=== PATIENT | female | born 1950 | race Caucasian/White ===

== ENCOUNTER 2017-10-09 01:11 | Observation (INO) ==
--- NOTE | 2017-10-09 09:55 | Internal Med History&Physical ---
Date of Encounter: 10/09/17 Time of Encounter: 09:52 Assessment and Plan (1) CAD (coronary artery disease) Current visit: Yes Status: Acute Patient with history of 3 stents now with recurrent chest pain troponin so far is negative is scheduled for nuclear stress test. Qualifiers: Coronary Disease-Associated Artery/Lesion type: [place] artery [place] vs. transplanted heart: [place] heart Associated angina: with stable angina Qualified Code(s): I25.118 - Atherosclerotic heart disease of [place] coronary artery with other forms of angina pectoris (2) HTN (hypertension) Current visit: Yes Status: Chronic Chronic and well controlled Qualifiers: Hypertension type: essential hypertension Qualified Code(s): I10 - Essential (primary) hypertension (3) Diabetes 1.5, managed as type 2 Current visit: Yes Status: Chronic Chronic and resume home medication and place on sliding scale (4) Obesity Current visit: Yes Status: Chronic Qualifiers: Obesity type: due to excess calories Obesity classification: unspecified obesity classification Serious obesity comorbidity presence: unspecified whether serious comorbidity present Qualified Code(s): E66.09 - Other obesity due to excess calories (5) COPD (chronic obstructive pulmonary disease) Current visit: Yes Status: Chronic Chronic no active wheezing Qualifiers: COPD type: emphysema Emphysema type: unspecified Qualified Code(s): J43.9 - Emphysema, unspecified (6) Hyperlipidemia Current visit: Yes Status: Chronic Chronic check lipid profile in a.m. Qualifiers: Hyperlipidemia type: pure hypercholesterolemia Qualified Code(s): E78.00 - Pure hypercholesterolemia, unspecified; E78.0 - Pure hypercholesterolemia (7) Smoking Current visit: Yes Status: Chronic (8) Chest pain Current visit: No Status: Acute Chest pain patient with the prior stents need further cardiac evaluation Qualifiers: Chest pain type: precordial pain Qualified Code(s): R07.2 - Precordial pain Internal Medicine - H&P: HPI Chief complaint: chest pain Admitted From: Emergency Dept Plans for Post Hospital Care: Home History of present illness: Ms. Lott is a 67 year old female Patient transfer from [facility] due to chest pain. Patient with history of CAD had 3 stents in the past plcaed at hospital in [place] also had history of COPD, diabetes, obesity, high cholesterol, smoking history patient presented to [facility] with about 4 hours of chest pain describes as dull tightness going up to her neck and jaw given total of 3 sublingual nitroglycerin and the chest pain subsided patient says chest pain similar to prior cardiac event of where she had angioplasty done therefore she was transferred here. chest pain still comes back from time to time troponin so far is negative. Patient will have further cardiac evaluation. Past Med Surg Social Fam HX - Past Medical History Medical history: COPD, diabetes, hyperlipidemia, hypertension, myocardial infarction Psychiatric history: anxiety, depression - Social History Smoking Status: Current every day smoker Smokeless Tobacco Status: No Alcohol use: none Drug use: none - Family History Mother History Unknown: Yes Internal Medicine - H&P: Meds Unable To Obtain [Unable to Obtain] 10/08/17 [History] 3 Allergy/AdvReac Type Severity Reaction Status Date / Time acetaminophen [From Vicodin] Allergy Hives Verified 10/08/17 22:55 Diclofenac [From Voltaren] Allergy Hives Verified 10/08/17 22:55 hydrocodone [From Vicodin] Allergy Hives Verified 10/08/17 22:55 tramadol [From Ultram] Allergy Hives Verified 10/08/17 22:55 All Systems PM: A 10-system review of systems was performed and is negative for pertinent findings except as documented above in the HPI. - Constitutional Constitutional: as per HPI - EENT Eyes: no change in vision, no discharge, no pain, no photophobia Ears: no ear discharge, no ear pain, no tinnitus Nose, mouth and throat: no dysphagia, no nasal discharge, no neck pain, no sore throat - Cardiovascular Cardiovascular ROS IM: chest pain, dyspnea on exertion - Respiratory Respiratory: dyspnea, dyspnea on exertion - Gastrointestinal Gastrointestinal: no abdominal pain, no diarrhea, no hematemesis, no hematochezia, no melena, no nausea, no vomiting - Genitourinary Genitourinary: no change in urinary stream, no dysuria, no flank pain, no hematuria - Musculoskeletal Musculoskeletal ROS IM: no numbness, no tingling - Constitutional Vitals: Temp Pulse Resp BP Pulse Ox 97.9 F 66 18 131/83 96 10/09/17 08:31 10/09/17 08:31 10/09/17 08:31 10/09/17 08:31 10/09/17 08:31 General appearance: Present: morbidly obese - Eye Eye exam: Present: PERRL, conjuntiva pink, sclera anicteric Pupils: Present: PERRL - Neck Neck exam general surgery: Present: supple, trachea midline. Absent: lymphadenopathy - Cardiovascular Cardiovascular exam: Present: RRR, +S1, +S2. Absent: diastolic murmur, gallop, rubs, systolic murmur - GI/Abdominal GI/Abdominal exam: Present: normal bowel sounds, soft, no peritoneal signs. Absent: distended, tenderness - Extremities Exam Extremities exam: Present: warm, radial pulses palpable and symmetrical. Absent : calf tenderness, cyanotic, pedal edema
[2017-10-09] MEDS ORDERED: Naloxone 0.4 MG/ML INJ IVP PRN (10:00)
[2017-10-09] MEDS ORDERED: Acetaminophen 325 MG TABLET PO PRN (10:00)
[2017-10-09] MEDS ORDERED: traMADol 50 MG TABLET PO PRN ×2 (10:00→10:10)
[2017-10-09] MEDS: *HR* OxyCODONE/APAP 7.5/325 TABLET PO PRN (14:01)
[2017-10-09] MEDS: Isosorbide MONOnitrate (24 HR) 60 MG TAB.ER.24H PO SCH (16:38)
[2017-10-09] MEDS: BuPROPion XL (24 HR) 150 MG TABLET PO SCH (16:39)
[2017-10-09] MEDS: Venlafaxine XR (24 HR) 150 MG CAP.ER.24H PO SCH (16:39)
[2017-10-09] MEDS: Cholecalciferol (D-3) 1,000 UNIT TABLET PO SCH ×2 (16:39→21:32)
[2017-10-09] MEDS: Pregabalin 75 MG CAPSULE PO SCH ×2 (16:44→21:32)
[2017-10-09] MEDS ORDERED: Pregabalin 75 MG CAPSULE PO SCH ×2 (21:00)
[2017-10-09] MEDS ORDERED: Patient Taking Own Medication 1 EACH PO SCH (21:00)
[2017-10-09] MEDS ORDERED: Cholecalciferol (D-3) 1,000 UNIT TABLET PO SCH (21:00)
[2017-10-09] MEDS: ETODOLAC 400 MG PO SCH (21:33)
[2017-10-10 02:09] LABS: Chol/HDL Ratio 4.6 (0-4.9); Magnesium 1.9 mg/dL (1.6-2.6)
[2017-10-10] MEDS: *HR* OxyCODONE/APAP 7.5/325 TABLET PO PRN (02:09)
[2017-10-10] MEDS ORDERED: Regadenoson 0.4 MG/5 ML SYRINGE IVP ONE (06:14)
[2017-10-10] MEDS: Isosorbide MONOnitrate (24 HR) 60 MG TAB.ER.24H PO SCH (07:30)
[2017-10-10] MEDS: ETODOLAC 400 MG PO SCH ×2 (07:31→21:56)
[2017-10-10] MEDS: Cholecalciferol (D-3) 1,000 UNIT TABLET PO SCH ×2 (07:32→21:57)
[2017-10-10] MEDS: Venlafaxine XR (24 HR) 150 MG CAP.ER.24H PO SCH (07:37)
[2017-10-10] MEDS: BuPROPion XL (24 HR) 150 MG TABLET PO SCH (07:37)
[2017-10-10] MEDS: Pregabalin 75 MG CAPSULE PO SCH ×2 (07:37→21:57)
[2017-10-10] MEDS ORDERED: BuPROPion XL (24 HR) 150 MG TABLET PO SCH (09:00)
[2017-10-10] MEDS ORDERED: Venlafaxine XR (24 HR) 150 MG CAP.ER.24H PO SCH (09:00)
[2017-10-10] MEDS ORDERED: Isosorbide MONOnitrate (24 HR) 60 MG TAB.ER.24H PO SCH (09:00)
--- NOTE | 2017-10-10 13:52 | Internal Med Progress Note ---
Date of Encounter: 10/10/17 Time of Encounter: 13:51 - Assessment and plan (1) CAD (coronary artery disease) Current Visit: Yes Status: Acute Assessment and plan: hx PCI in 2009 with drug eluting stents to RCA and ramus. Now with chest pain that started today of presentation. [place] states chest pain was similar to when she had stents placed. TTE with EF 65%, mild diastolic dysfunction, no wall motion abnormalities. Stress test negative for infarct/ischemia. Patient had chest pain on warning of 10/10 prior to stress test. Stress test options with her at length regarding medical management, outpatient follow-up versus inpatient cardiology consultation. Patient would like to maximize medical therapy, stay overnight for continued monitoring and discharge home tomorrow with outpatient follow-up if she remains chest pain-free. Continue home ASA, BB , statin. Increase isosorbide. Plan to discharge home 10/11 if no chest pain recurrence. Will need to consult cardiology if chest pain recurs. Qualifiers: Coronary Disease-Associated Artery/Lesion type: [place] artery [place] vs. transplanted heart: [place] heart Associated angina: with stable angina Qualified Code(s): I25.118 - Atherosclerotic heart disease of [place] coronary artery with other forms of angina pectoris (2) COPD (chronic obstructive pulmonary disease) Current Visit: Yes Status: Chronic Assessment and plan: per hx. Current smoker. No evidence of exacerbation. Cont PRN breathing treatments. Qualifiers: COPD type: emphysema Emphysema type: unspecified Qualified Code(s): J43.9 - Emphysema, unspecified (3) Diabetes 1.5, managed as type 2 Current Visit: Yes Status: Chronic Assessment and plan: per hx. blood sugars controlled. Holding home metformin. SSI. Monitor blood sugars and titrate PRN (4) HTN (hypertension) Current Visit: Yes Status: Chronic Assessment and plan: per hx. Bp controlled. Cont home BP medications Qualifiers: Hypertension type: essential hypertension Qualified Code(s): I10 - Essential (primary) hypertension (5) DVT prophylaxis Current Visit: Yes Status: Acute Assessment and plan: heparin - Subjective Interval history: Seen and examined at [facility]; patient is due to me. Information obtained from chart review patient report. Says she feels better, no chest pain or shortness breath at this time. She does report episode of chest pain earlier this morning. Says chest pain occurred yesterday it was similar to previous MS. Discussed with her at length her options regarding discharge her home with outpatient follow-up, increasing long-acting nitrate or inpatient cardiology consultation. Patient would like to increase long-acting nitrate and stay overnight for continued monitoring. - Constitutional Vitals: Temp Pulse Resp BP Pulse Ox 97.7 F 81 18 113/75 95 10/10/17 11:25 10/10/17 11:25 10/10/17 11:25 10/10/17 11:25 10/10/17 11:25 General appearance: Present: A&O X 3, morbidly obese, no acute distress - Head Head exam: Present: atraumatic, normocephalic - Eye Eye exam: Present: PERRL, conjuntiva pink, sclera anicteric Pupils: Present: PERRL - Neck Neck exam general surgery: Present: supple, trachea midline. Absent: lymphadenopathy - Respiratory Respiratory exam: Present: CTAB. Absent: accessory muscle use, rales, rhonchi, wheezes - Cardiovascular Cardiovascular exam: Present: RRR, +S1, +S2. Absent: diastolic murmur, gallop, rubs, systolic murmur - GI/Abdominal GI/Abdominal exam: Present: normal bowel sounds, soft, no peritoneal signs. Absent: distended, tenderness - Extremities Exam Extremities exam: Present: warm, radial pulses palpable and symmetrical. Absent : calf tenderness, cyanotic, pedal edema - Neurological Exam Neurological exam: Present: CN II-XII intact, oriented X3, no focal deficits. Absent: pronater drift, facial droop, speech deficit - Skin Skin exam: Present: dry, intact Internal Medicine: Result - Labs Labs: Cardiac Enzymes 10/09/17 10/09/17 Range/Units 16:48 22:17 Troponin I < 0.03 < 0.03 (< 0.04) ng/mL - Impressions Impressions Echocardiogram 10/09/17 10:03 Impressions: LVEF 65%. Normal LV chamber size, wall thickness and function. Mild left ventricular diastolic dysfunction. Normal right ventricular structure and function. Unable to estimate RVSP due to lack of TR jet. No significant valvular dysfunction. Left Ventricular Wall Motion: Rest Echo Findings All wall segments showed normal motion. Findings: Study Quality * Technically adequate exam. ECG Findings * Normal sinus rhythm. Left Ventricle * LVEF 65%. * Normal LV chamber size, wall thickness and function. * Mild left ventricular diastolic dysfunction. Right Ventricle * Normal right ventricular structure and function. Left Atrium * Normal left atrial size. Right Atrium * Normal right atrial size. Interatrial Septum * Interatrial septum not well evaluated. Aortic Valve * Aortic valve not well visualized. * No aortic regurgitation. * No aortic stenosis. Mitral Valve * Normal mitral valve structure and function. * No mitral regurgitation. * No mitral stenosis. Tricuspid Valve * Normal tricuspid valve structure and function. * No tricuspid regurgitation. * Unable to estimate RVSP due to lack of TR jet. Aorta * Normally sized aortic root. Pericardium * The pericardium appears normal. IVC * Normal IVC dimensions and inspiratory collapse. Pulmonary Artery * Normal visualized portions of the main pulmonary artery. Consult Discharge Plan - Plan Referrals: Dakota Perez, SHAR [Primary Care Provider] -
[2017-10-10] MEDS: Isosorbide MONOnitrate (24 HR) 30 MG TAB.ER.24H PO SCH (14:14)
[2017-10-10] MEDS ORDERED: D5% in Water 1,000 ML IVC PRN (14:15)
[2017-10-10] MEDS ORDERED: Dextrose Gel 15 GM/37.5 ML TUBE PO PRN ×2 (14:15)
[2017-10-10] MEDS ORDERED: *HR* Dextrose 50 % in Water (Syg) 50 ML SYRINGE IVP PRN (14:15)
[2017-10-10 15:24] LABS: Hemoglobin A1C 5.9 %
[2017-10-10] MEDS: Insulin LISPRO 300 UNITS/3 ML VIAL SQ SCH (16:28)
[2017-10-10] MEDS: Aspirin 81 MG TAB.CHEW PO SCH (16:30)
[2017-10-10] MEDS ORDERED: Insulin LISPRO 300 UNITS/3 ML VIAL SQ SCH (21:00)
[2017-10-10] MEDS: *HR* Heparin 5,000 UNIT/ML VIAL SQ SCH (21:58)
[2017-10-11 04:08] LABS: Hematocrit 43.6 % (35.3-44.9); Hemoglobin 14.1 g/dL (11.5-15.4); Mean Corpuscular HGB Conc 32.3 g/dL (31.6-35.5); Mean Corpuscular Hemoglobin 31.2 pg (28.0-33.3); Mean Corpuscular Volume 96.5 fL (83.0-100.0); Mean Platelet Volume 9.8 fL (9.4-12.4); Platelet Count 273 K/mcL (140-400); Red Blood Count 4.52 M/mcL (3.82-4.97); Red Cell Distribution Width 14.1 % (11.5-14.5)
[2017-10-11 04:30] LABS: BUN/Creatinine Ratio 26 (6-26); Blood Urea Nitrogen 22 mg/dL (8-23); Calcium 9.6 mg/dL (8.6-10.3); Carbon Dioxide 25 mEq/L (23-29); Chloride 107 mEq/L (98-107); Glucose 89 mg/dL (70-105); Osmolality,Calculated 293 (280-300); Potassium 4.5 mEq/L (3.5-5.1); Sodium 140 mEq/L (136-145); eGFR For Non-African Americans > 60 (> 60)
[2017-10-11] MEDS: *HR* Heparin 5,000 UNIT/ML VIAL SQ SCH (06:25)
[2017-10-11 08:08] VITALS: BP 138/83
[2017-10-11] MEDS: Cholecalciferol (D-3) 1,000 UNIT TABLET PO SCH (08:08)
[2017-10-11] MEDS: Venlafaxine XR (24 HR) 150 MG CAP.ER.24H PO SCH (08:08)
[2017-10-11] MEDS: Pregabalin 75 MG CAPSULE PO SCH (08:08)
[2017-10-11] MEDS: Aspirin 81 MG TAB.CHEW PO SCH (08:08)
[2017-10-11] MEDS: Isosorbide MONOnitrate (24 HR) 30 MG TAB.ER.24H PO SCH (08:09)
[2017-10-11] MEDS: ETODOLAC 400 MG PO SCH (08:09)
[2017-10-11] MEDS: BuPROPion XL (24 HR) 150 MG TABLET PO SCH (08:09)
[2017-10-11] MEDS: Insulin LISPRO 300 UNITS/3 ML VIAL SQ SCH (08:14)
--- NOTE | 2017-10-11 09:38 | Internal Med Progress Note ---
Date of Encounter: 10/11/17 Time of Encounter: 08:55 - Assessment and plan (1) CAD (coronary artery disease) Current Visit: Yes Status: Acute Assessment and plan: Patient denies chest pain. She states that she is feeling better and ready to go home. She will be sent home with a prescription or increased amount of Imdur. She will continue her home dose of aspirin, beta myron, and her statin. Patient will follow up with primary care and cardiology. Patient arrived discussed smoking cessation, she states that she already has a box of patches at home has decided that she is ready to stop smoking. Echo results below. Cardiac stress test was negative for infarct or ischemia. Echocardiogram 10/09/17 10:03 Impressions: LVEF 65%. Normal LV chamber size, wall thickness and function. Mild left ventricular diastolic dysfunction. Normal right ventricular structure and function. Unable to estimate RVSP due to lack of TR jet. No significant valvular dysfunction. Left Ventricular Wall Motion: Rest Echo Findings All wall segments showed normal motion. Findings: Study Quality * Technically adequate exam. ECG Findings * Normal sinus rhythm. Left Ventricle * LVEF 65%. * Normal LV chamber size, wall thickness and function. * Mild left ventricular diastolic dysfunction. Right Ventricle * Normal right ventricular structure and function. Left Atrium * Normal left atrial size. Right Atrium * Normal right atrial size. Interatrial Septum * Interatrial septum not well evaluated. Aortic Valve * Aortic valve not well visualized. * No aortic regurgitation. * No aortic stenosis. Mitral Valve * Normal mitral valve structure and function. * No mitral regurgitation. * No mitral stenosis. Tricuspid Valve * Normal tricuspid valve structure and function. * No tricuspid regurgitation. * Unable to estimate RVSP due to lack of TR jet. Aorta * Normally sized aortic root. Pericardium * The pericardium appears normal. IVC * Normal IVC dimensions and inspiratory collapse. Pulmonary Artery * Normal visualized portions of the main pulmonary artery. Qualifiers: Coronary Disease-Associated Artery/Lesion type: [place] artery [place] vs. transplanted heart: [place] heart Associated angina: with stable angina Qualified Code(s): I25.118 - Atherosclerotic heart disease of [place] coronary artery with other forms of angina pectoris (2) DVT prophylaxis Current Visit: Yes Status: Acute Assessment and plan: heparin subcutaneous. (3) COPD (chronic obstructive pulmonary disease) Current Visit: Yes Status: Chronic Assessment and plan: No acute exacerbation. Lungs are clear and diminished throughout. Patient is a current every day smoker. She has decided that she would like to try NicoDerm patches for smoking cessation. Patient states she has a box at home and will start and when she gets there. Continue current home medications after discharge. Qualifiers: COPD type: emphysema Emphysema type: unspecified Qualified Code(s): J43.9 - Emphysema, unspecified (4) Diabetes 1.5, managed as type 2 Current Visit: Yes Status: Chronic Assessment and plan: Continue home medications after discharge. Blood sugars have been well controlled in the hospital. (5) HTN (hypertension) Current Visit: Yes Status: Chronic Assessment and plan: Chronic. Continue home medications. Qualifiers: Hypertension type: essential hypertension Qualified Code(s): I10 - Essential (primary) hypertension (6) Hyperlipidemia Current Visit: Yes Status: Chronic Assessment and plan: Chronic. Continue statin at home. Encouraged lifestyle modifications. Qualifiers: Hyperlipidemia type: pure hypercholesterolemia Qualified Code(s): E78.00 - Pure hypercholesterolemia, unspecified; E78.0 - Pure hypercholesterolemia (7) Obesity Current Visit: Yes Status: Chronic Assessment and plan: Chronic. Encourage and implement lifestyle modifications. Qualifiers: Obesity type: due to excess calories Obesity classification: unspecified obesity classification Serious obesity comorbidity presence: unspecified whether serious comorbidity present Qualified Code(s): E66.09 - Other obesity due to excess calories (8) Smoking Current Visit: Yes Status: Chronic Assessment and plan: Patient is a current every day one pack per day smoker. Patient has patches at home. States she is ready to stop smoking will start using them after discharge. Smoking cessation counseling was completed. - Time Spent With Patient less than 15 minutes - Subjective Interval history: Patient was sitting up in bed eating breakfast. She was seen and assessed at 8: 55 AM. Patient denies any chest pain. She states that she feels better and is ready to go home. She denies shortness of breath, abdominal pain, nausea, vomiting, diarrhea, she denies headache or blurred vision. She denies need for prescriptions other than increased amount of Imdur. - Constitutional Vitals: Temp Pulse Resp BP Pulse Ox 97.5 F L 60 16 138/83 93 10/11/17 08:06 10/11/17 08:06 10/11/17 08:06 10/11/17 08:06 10/11/17 08:06 General appearance: Present: cooperative, A&O X 3, morbidly obese, pleasant, no acute distress, answers questions appropriately - Head Head exam: Present: atraumatic, normal inspection, normocephalic - Eye Eye exam: Present: normal appearance, conjuntiva pink, sclera anicteric - Neck Neck exam general surgery: Present: normal inspection, supple, trachea midline - Respiratory Respiratory exam: Present: CTAB. Absent: accessory muscle use, decreased breath sounds, rales, respiratory distress, rhonchi, wheezes - Cardiovascular Cardiovascular exam: Present: RRR, +S1, +S2. Absent: diastolic murmur, gallop, rubs, systolic murmur - GI/Abdominal GI/Abdominal exam: Present: normal bowel sounds, soft. Absent: distended, hepatomegaly, tenderness - Extremities Exam Extremities exam: Present: normal capillary refill, normal inspection, warm, radial pulses palpable and symmetrical. Absent: calf tenderness, cyanotic, pedal edema, tenderness - Neurological Exam Neurological exam: Present: alert, oriented X3, no focal deficits. Absent: facial droop, speech deficit - Skin Skin exam: Present: dry, intact, normal color, warm. Absent: rash Internal Medicine: Result - Labs CBC & Chem 7: 10/11/17 03:09 10/11/17 03:09 Labs: Short CBC 10/11/17 Range/Units 03:09 WBC 8.7 (4.3-11.1) K/mcL Hgb 14.1 (11.5-15.4) g/dL Hct 43.6 (35.3-44.9) % Plt Count 273 (140-400) K/mcL [facility] 10/11/17 03:09 Sodium 140 Potassium 4.5 Chloride 107 Carbon Dioxide 25 BUN 22 Creatinine 0.84 Glucose 89 Calcium 9.6 Consult Discharge Plan - Plan Referrals: Dakota Perez, PHARMACY STOCK CLERK [Primary Care Provider] -
--- NOTE | 2017-10-11 09:45 | Discharge Summary ---
- NOTES TO OUTPATIENT PROVIDER Notes to Outpatient Provider: Patient had negative stress test, echocardiogram with preserved ejection fraction valvular dysfunction. Chest pain resolved with increase in Imdur. Patient will need to follow with primary care, as well as cardiology. Orders not resulted at time of discharge: Pending orders 10/09/17 10:04 NM fermin perf SPECT multi [NM] Routine Date of Encounter: 10/11/17 Time of Encounter: 08:55 - Discharge Diagnosis (1) CAD (coronary artery disease) Priority: Primary Status: Acute Comments: Patient denies chest pain. She states that she is feeling better and ready to go home. She will be sent home with a prescription or increased amount of Imdur. She will continue her home dose of aspirin, beta myron, and her statin. Patient will follow up with primary care and cardiology. Patient arrived discussed smoking cessation, she states that she already has a box of patches at home has decided that she is ready to stop smoking. Echo results below. Cardiac stress test was negative for infarct or ischemia. Echocardiogram 10/09/17 10:03 Impressions: LVEF 65%. Normal LV chamber size, wall thickness and function. Mild left ventricular diastolic dysfunction. Normal right ventricular structure and function. Unable to estimate RVSP due to lack of TR jet. No significant valvular dysfunction. Left Ventricular Wall Motion: Rest Echo Findings All wall segments showed normal motion. Findings: Study Quality * Technically adequate exam. ECG Findings * Normal sinus rhythm. Left Ventricle * LVEF 65%. * Normal LV chamber size, wall thickness and function. * Mild left ventricular diastolic dysfunction. Right Ventricle * Normal right ventricular structure and function. Left Atrium * Normal left atrial size. Right Atrium * Normal right atrial size. Interatrial Septum * Interatrial septum not well evaluated. Aortic Valve * Aortic valve not well visualized. * No aortic regurgitation. * No aortic stenosis. Mitral Valve * Normal mitral valve structure and function. * No mitral regurgitation. * No mitral stenosis. Tricuspid Valve * Normal tricuspid valve structure and function. * No tricuspid regurgitation. * Unable to estimate RVSP due to lack of TR jet. Aorta * Normally sized aortic root. Pericardium * The pericardium appears normal. IVC * Normal IVC dimensions and inspiratory collapse. Pulmonary Artery * Normal visualized portions of the main pulmonary artery. Qualifiers: Coronary Disease-Associated Artery/Lesion type: [place] artery [place] vs. transplanted heart: [place] heart Associated angina: with stable angina Qualified Code(s): I25.118 - Atherosclerotic heart disease of [place] coronary artery with other forms of angina pectoris (2) DVT prophylaxis Priority: Secondary Status: Acute Comments: Subcutaneous heparin. (3) COPD (chronic obstructive pulmonary disease) Priority: Secondary Status: Chronic Comments: No acute exacerbation. Lungs are clear and diminished throughout. Patient is a current every day smoker. She has decided that she would like to try NicoDerm patches for smoking cessation. Patient states she has a box at home and will start and when she gets there. Continue current home medications after discharge. Qualifiers: COPD type: emphysema Emphysema type: unspecified Qualified Code(s): J43.9 - Emphysema, unspecified (4) Diabetes 1.5, managed as type 2 Priority: Secondary Status: Chronic Comments: Continue home medications after discharge. Blood sugars have been well controlled in the hospital. (5) HTN (hypertension) Priority: Secondary Status: Chronic Comments: Chronic. Continue home medications. Qualifiers: Hypertension type: essential hypertension Qualified Code(s): I10 - Essential (primary) hypertension (6) Hyperlipidemia Priority: Secondary Status: Chronic Comments: Chronic. Continue home dose of statin after discharge. Qualifiers: Hyperlipidemia type: pure hypercholesterolemia Qualified Code(s): E78.00 - Pure hypercholesterolemia, unspecified; E78.0 - Pure hypercholesterolemia (7) Obesity Priority: Secondary Status: Chronic Comments: Chronic. Encourage and implement lifestyle modifications. Qualifiers: Obesity type: due to excess calories Obesity classification: unspecified obesity classification Serious obesity comorbidity presence: unspecified whether serious comorbidity present Qualified Code(s): E66.09 - Other obesity due to excess calories (8) Smoking Priority: Secondary Status: Chronic Comments: Patient is a current every day one pack per day smoker. Patient has patches at home. States she is ready to stop smoking will start using them after discharge. Smoking cessation counseling was completed. Hospital course: Ms. Lott is a 67 year old female with past medical history coronary artery disease, hypertension, diabetes, obesity, COPD, hyperlipidemia, and smoking. Presented to the emergency department with chest pain. Stress test was negative , echocardiogram showed preserved EFsignificant valvular dysfunction. Patient was given the option for optimizing medical management and stayed overnight after Imdur was increased to 90 mg by mouth daily. Have given her prescription for 60 mg tablets to take daily along with her 30 mg tablet. Patient denies any chest pain. All labs and testing were negative, all imaging was negative. Vitals are stable and within normal limits. Patient is stable and ready for discharge. Discharge discussed with: patient Time spent discussing smoking cessation with patient: 3 to 10 minutes - Time Spent with Patient Total time spent providing and/or coordinating discharge services: Less than 30 minutes - Discharge Medications Prescriptions: Aspirin Enteric Coated [Aspirin EC] 81 mg PO DAILY #30 tablet. Isosorbide MONOnitrate (24 HR) [Imdur] 30 mg PO DAILY #30 tab.er.24h Isosorbide MONOnitrate (24 HR) [Imdur] 60 mg PO DAILY #30 tab.er.24h Home Medications: Albuterol Sulfate [Ventolin Hfa] 1 - 2 puff IH Q4-6H PRN 10/09/17 [History] BuPROPion XL (24 HR) [Wellbutrin Xl] 150 mg PO DAILY 10/09/17 [History] Desvenlafaxine Succinate [Pristiq] 100 mg PO DAILY 10/09/17 [History] Ergocalciferol (VITAMIN D2) [Vitamin D2] 2,000 unit PO BID 10/09/17 [History] Etodolac [Lodine] 400 mg PO BID 10/09/17 [History] Lisinopril [Zestril] 5 mg PO DAILY 10/09/17 [History] Metformin HCl [Glucophage] 1,000 mg PO BID 10/09/17 [History] Metoprolol [Lopressor] 25 mg PO BID 10/09/17 [History] OxyCODONE/APAP 7.5/325 [Percocet 7.5/325 MG] 1 tab PO Q8H PRN 10/09/17 [History] Pravastatin Sodium [Pravachol] 20 mg PO DAILY 10/09/17 [History] Pregabalin [Lyrica] 150 mg PO BID 10/09/17 [History] Aspirin Enteric Coated [Aspirin EC] 81 mg PO DAILY #30 tablet. 10/11/17 [Rx] Isosorbide MONOnitrate (24 HR) [Imdur] 30 mg PO DAILY #30 tab.er.24h 10/11/17 [ Rx] Isosorbide MONOnitrate (24 HR) [Imdur] 60 mg PO DAILY #30 tab.er.24h 10/11/17 [ Rx] Allergies/Adverse Reactions: 3 Allergy/AdvReac Type Severity Reaction Status Date / Time Diclofenac [From Voltaren] Allergy Hives Verified 10/08/17 22:55 hydrocodone [From Vicodin] Allergy Hives Verified 10/08/17 22:55 tramadol [From Ultram] Allergy Hives Verified 10/08/17 22:55 Date of admission: 10/09/17 08:12 Primary care physician: Dakota Perez CNP Discharging clinician: Nettie Smith Anticipated date of discharge: 10/11/17 - Constitutional Vitals: Temp Pulse Resp BP Pulse Ox 97.5 F L 60 16 138/83 93 10/11/17 08:06 10/11/17 08:06 10/11/17 08:06 10/11/17 08:06 10/11/17 08:06 General appearance: Present: cooperative, A&O X 3, morbidly obese, pleasant, no acute distress, answers questions appropriately - Head Head exam: Present: atraumatic, normal inspection, normocephalic - Eye Eye exam: Present: normal appearance, conjuntiva pink, sclera anicteric - Neck Neck exam general surgery: Present: supple, trachea midline. Absent: lymphadenopathy, tenderness - Respiratory Respiratory exam: Present: CTAB. Absent: accessory muscle use, decreased breath sounds, rales, respiratory distress, rhonchi, wheezes - Cardiovascular Cardiovascular exam: Present: RRR, +S1, +S2. Absent: diastolic murmur, gallop, rubs, systolic murmur - GI/Abdominal GI/Abdominal exam: Present: normal bowel sounds, soft. Absent: distended, hepatomegaly, tenderness - Extremities Exam Extremities exam: Present: normal capillary refill, normal inspection, warm, radial pulses palpable and symmetrical. Absent: calf tenderness, cyanotic, pedal edema, tenderness - Neurological Exam Neurological exam: Present: alert, oriented X3, no focal deficits. Absent: facial droop, speech deficit - Skin Skin exam: Present: dry, intact, normal color, warm. Absent: rash - Patient Status Disposition: Home, Self-Care Condition: Good Functional capacity at discharge: independent ambulation Overall status at discharge: patient is back to baseline - Discharge Instructions Follow Up With: Dakota Perez CNP [Primary Care Provider] - Additional Instructions: Please take 90 mg of Imdur daily. Prescriptions have been called to [facility] pharmacy. Resume your normal activities and diet as tolerated. Resume your normal home medications, except for your old dose of Imdur Return to the emergency department as needed for any other problems or concerns , or if your symptoms return or worsen. - Diet and Activity Activity: increase activity as tolerated Diet: diabetic diet, low fat, low cholesterol, low salt diet
== END 2017-10-11 12:00 | disposition home or self-care (01) ==
LOC: 3NENU
PROVIDERS: ADMIT Internal Medicine; ATTEND Internal Medicine